=== PATIENT | female | born 1980 | race Caucasian/White ===

== ENCOUNTER 2017-01-14 15:55 | Emergency (ER) | payer BC ==
[2017-01-14] MEDS ORDERED: Phenazopyridine TAB* 100 MG PO ONE (16:40)
[2017-01-14 16:49] VITALS: BP 128/83
--- NOTE | 2017-01-14 16:49 | UC ---
Complaint Female HPI - HPI Summary HPI Summary: Bladder discomfort, frequency, and dysuria starting 5 days ago. Tried drinking lots of fluids but getting worse. Feels like UTI she had in her teens. None since then. Denies vaginal symptoms. Also starting coughing 3 days ago and has become hoarse -- not worried about it , is not intending to be seen for this, but wanted to be upfront about symptoms. - History Of Current Complaint Stated Complaint: URINARY Time Seen by Provider: 01/14/17 16:29 Hx Obtained From: Patient Hx Last Menstrual Period: 10/02/16 ?: No Onset/Duration: Gradual Onset, Lasting Days Timing: Constant Character: Cramping Aggravating Factor(s): Urination Alleviating Factor(s): Position Related Hx: Similar Episode/Dx as: - UTI - Allergies/Home Medications Allergies/Adverse Reactions: Allergies Allergy/AdvReac Type Severity Reaction Status Date / Time No Known Allergies Allergy Verified 10/06/16 20:00 PMH/Surg Hx/FS Hx/Imm Hx Previously Healthy: Yes - Surgical History Surgical History: Yes Surgery Procedure, Year, and Place: DOUBLE MASTECTOMY WITH RECONSTRUCTION. WISDOM TEETH EXTRACTION - Family History Known Family History: Positive: Diabetes - grandfather-maternal Negative: Cardiac Disease, Hypertension, Respiratory Disease - Social History Alcohol Use: None Substance Use Type: None Smoking Status (MU): Never Smoked Tobacco Review of Systems Constitutional: Negative Skin: Negative Eyes: Negative ENT: Negative Respiratory: Negative Cardiovascular: Negative Gastrointestinal: Negative Genitourinary: Dysuria, Hematuria, Frequency Motor: Negative Neurovascular: Negative Musculoskeletal: Negative Neurological: Negative Psychological: Negative All Other Systems Reviewed And Are Negative: Yes Physical Exam Triage Information Reviewed: Yes Appearance: Well-Appearing, Well-Nourished, Pain Distress - mild, from bladder Vital Signs Reviewed: Yes Eye Exam: Normal Eyes: Positive: Conjunctiva Clear ENT Exam: Normal ENT: Positive: Normal ENT inspection, Hearing grossly normal, Pharynx normal, TMs normal Neck exam: Normal Respiratory Exam: Normal Respiratory: Positive: Chest non-tender, Lungs clear, Normal breath sounds, No respiratory distress, No accessory muscle use Cardiovascular Exam: Normal Cardiovascular: Positive: RRR, No Murmur Abdomen Description: Negative: CVA Tenderness (R), CVA Tenderness (L) Musculoskeletal Exam: Normal Neurological Exam: Normal Psychological Exam: Normal Skin Exam: Normal Complaint Female Dx - Differential Dx/Diagnosis Provider Diagnoses: UTI Discharge - Discharge Plan Condition: Stable Disposition: HOME Prescriptions: Nitrofurantoin Monohyd Macro [Macrobid] 100 mg PO BID #10 cap Patient Education Materials: Urinary Tract Infection in Women (ED) Referrals: No Primary Care Phys,NOPCP [Primary Care Provider] -
== END 2017-01-14 17:18 | disposition home or self-care (01) ==
LOC: UCCORT 15:55
DX: N39.0 Urinary tract infection, site not specified (principal); R31.9 Hematuria, unspecified; Z87.440 Personal history of urinary (tract) infections
CPT/HCPCS: 87086; 99212; A9270-GY; G0463

== ENCOUNTER 2017-01-16 10:04 | Emergency (ER) | payer BC ==
[2017-01-16] MEDS ORDERED: Ondansetron ODT TAB* 4 MG PO ONE (10:57)
[2017-01-16] MEDS ORDERED: Ondansetron ODT TAB* 4 MG ONE (10:58)
[2017-01-16] MEDS ORDERED: Ketorolac INJ* 60 MG/2 ML VIAL IM ONE (10:58)
[2017-01-16 11:25] VITALS: BP 147/80
--- NOTE | 2017-01-16 11:36 | RAD ---
INDICATION: Left lower quadrant abdominal pain. COMPARISON: There are no prior studies available for comparison TECHNIQUE: A CT scan of the abdomen and pelvis was performed without intravenous or oral contrast. Contiguous axial sections were obtained from the lung bases through the symphysis pubis. Images were reconstructed in the coronal and sagittal planes. FINDINGS: The lung bases are clear. No pleural effusion is present. The liver is normal in size without significant focal abnormality on this noncontrast study. The spleen is mildly enlarged. No calcified gallstones are seen. The pancreas appears to be within normal limits. The adrenal glands and kidneys are normal in size. No renal calculi are seen. There is a prominent left renal pelvis most consistent with normal variation. No ureteral or bladder calculi are seen. The aorta is normal in caliber without significant calcific plaque. No significant enlarged retroperitoneal lymph nodes are seen. The stomach is mildly distended and filled with fluid and food debris. Small bowel and colon are nondistended. The appendix is within normal limits. There is no evidence for diverticulitis or colitis. Postsurgical changes are noted within the anterior abdominal wall. There are multiple surgical clips present. No hernia is seen. The uterus is anteverted and upper limits of normal in size. No free intraperitoneal air or fluid is seen. No significant focal osseous abnormality is seen. IMPRESSION: 1. POSTSURGICAL CHANGES, NO EVIDENCE FOR ACUTE FINDING OR CAUSE FOR THE PATIENT'S ABDOMINAL PAIN IS SEEN. 2. MILD SPLENOMEGALY.
--- NOTE | 2017-01-16 11:52 | UC ---
Abdominal Pain Female HPI - HPI Summary HPI Summary: 36 female presents with complaints of un-improving bladder spasms and sudden onset sharp/stabbing LLQ pain that began upon waking up this morning 01/16/17, and brought her into the position. Patient was seen here 01/14 and treated for a UTI. Culture came back negative and she was called and stated she still wasn't feeling any better. The abdominal pain was also new. She was advised to come back and presents in office with nausea, abdominal pain and feeling like she was going to pass out from the pain. She took an ibuprofen yesterday and this morning without any relief. Denies radiation of pain. Denies vomiting, diarrhea, urinary symptoms, blood in stool, constipation and history of acid reflux. Denies difficulty breathing, chest pain and fever/chills. She was kept up from sleeping last night due to bladder spasms that began ~ 1 week ago. She is unable to urinate at times although it feels as though she has to. Denies urinary incontinence. Denies vaginal discharge and symptoms. Same sexual partner , denies as had vasectomy. States she feels bloated. Has had no trouble eating or drinking. - History of Current Complaint Chief Complaint: UCAbdominalPain Stated Complaint: URINARY Time Seen by Provider: 01/16/17 10:56 Hx Obtained From: Patient Hx Last Menstrual Period: 12/24/16 ?: No Onset/Duration: Sudden Onset, Lasting Days, Worse Since Timing: Constant Severity Currently: None Pain Intensity: 10 Pain Scale Used: 0-10 Numeric Location: Discrete At: LLQ Radiates: No Character: Sharp - stabbing Aggravating Factor(s): Nothing Alleviating Factor(s): Nothing Associated Signs and Symptoms: Positive: Urinary Symptoms - bladder spasms and unable to urinate at times Allergies/Adverse Reactions: Allergies Allergy/AdvReac Type Severity Reaction Status Date / Time No Known Allergies Allergy Verified 01/16/17 10:43 PMH/Surg Hx/FS Hx/Imm Hx Endocrine History Of: Denies: Diabetes Cardiovascular History Of: Denies: Hypertension Psychological History Of: Denies: Anxiety - Surgical History Surgical History: Yes Surgery Procedure, Year, and Place: DOUBLE MASTECTOMY WITH RECONSTRUCTION. WISDOM TEETH EXTRACTION - Family History Known Family History: Positive: Diabetes - grandfather-maternal Negative: Cardiac Disease, Hypertension, Respiratory Disease - Social History Alcohol Use: None Substance Use Type: None Smoking Status (MU): Never Smoked Tobacco - Immunization History Most Recent Influenza Vaccination: none Review of Systems Constitutional: Negative Skin: Negative ENT: Negative Respiratory: Negative Cardiovascular: Negative Gastrointestinal: Abdominal Pain, Other - nausea Genitourinary: Urgency - however unable to urinate, Other - bladder spasms Motor: Negative Neurovascular: Negative Musculoskeletal: Negative Neurological: Negative Psychological: Negative All Other Systems Reviewed And Are Negative: Yes Physical Exam Triage Information Reviewed: Yes Appearance: No Pain Distress, Well-Nourished, Ill-Appearing - however appeared much better after toradol and zofran Vital Signs: Initial Vital Signs Temp 96.0 F 01/16/17 10:39 Pulse 66 01/16/17 10:39 Resp 14 01/16/17 10:39 BP 133/77 01/16/17 10:39 Pulse Ox 100 01/16/17 10:39 Vital Signs Reviewed: Yes Eyes: Positive: Conjunctiva Clear ENT: Positive: Hearing grossly normal, Pharynx normal, TMs normal Dental: Negative: Cervical Lymphadenopathy Neck: Positive: Supple, Nontender Respiratory: Positive: Chest non-tender, Lungs clear, Normal breath sounds, No respiratory distress Cardiovascular: Positive: RRR, No Murmur, Pulses Normal Abdomen Description: Positive: No Organomegaly, Soft, CVA Tenderness (R) - very mild, Other: - mild tenderness on palpation of upper-mid portion of LLQ. non- tender throughout rest of abdomen, negative rovsing, psoas and rebound. no back pain. Negative: Bruit, CVA Tenderness (L), Distended, Guarding, Hepatomegaly, McBurney's Point Tenderness, Splenomegaly Bowel Sounds: Positive: Present Musculoskeletal: Positive: Strength Intact, ROM Intact Neurological: Positive: Alert, Muscle Tone Normal Psychological Exam: Normal Skin Exam: Normal UC Physical Exam Vital Signs On Initial Exam: Initial Vitals Temp Pulse Resp BP Pulse Ox 96.0 F 66 14 133/77 100 01/16/17 10:39 01/16/17 10:39 01/16/17 10:39 01/16/17 10:39 01/16/17 10:39 - Genitalia Exam Female Genitourinary: Normal External Exam, Normal Vaginal Exam, Vagina without Blood/Discharge, Genitalia without Lesions/Masses, Cervix Closed, Other - no adenexal tenderness Diagnostics - Radiology CT of abdomen/pelvis Xray Interpretation: No Acute Changes - 1. POSTSURGICAL CHANGES, NO EVIDENCE FOR ACUTE FINDING OR CAUSE FOR THE PATIENT'S ABDOMINAL PAIN IS SEEN. 2. MILD SPLENOMEGALY. Radiology Interpretation Completed By: Radiologist Re-Evaluation - Re-Evaluation First Eval Re-Evaluation Time: 11:20 Change: Improved - patient felt much better after toradol and zofran Abd Pain Female Course/Dx - Course Course Of Treatment: Urinalysis UA preg, and Ct scan obtained. All negative. Pelvic exam was normal and unremarkable. Cultures were obtained, STD and Affirm. Patient's urine culture was negative advised to stop macrobid. will be prescribed pyridium to help with bladder pain and spasm. discussed with Dr Estrada. Before discharge patient stated her pain was still better but she could still feel it, dull achey. Routine blood work was ordered to rule out any other etiologies. Will be referred to urologist for possible urinary incontinence/retention and to discuss bladder spasms. aware of worsening symptoms and to go to ER or if new symptoms develop. advised it may be a good idea to go to ER after she leaves here for more of a work-up - Differential Dx/Diagnosis Differential Diagnosis: Appendicitis, Constipation, Diverticulitis, Gall Bladder Disease, Irritable Bowel Syndrome, Ovarian Cyst, Pelvic Inflammatory Disease, , Renal Colic, Urinary Tract Infection, Other - nephrolithiasis Provider Diagnoses: LLQ abdominal pain, bladder spasms Discharge - Discharge Plan Condition: Stable Disposition: HOME Prescriptions: Phenazopyridine TAB* [Pyridium TAB*] 100 mg PO TID #10 tab Patient Education Materials: [employer] Exercises for Women (GEN), Acute Urinary Retention in Women (ED), Acute Abdominal Pain (ED) Referrals: Loretta Lee MD [Primary Care Provider] - Jorge Bella MD,Po Rowe [Medical Doctor] - Additional Instructions: Take prescribed medication as needed for pain for the next couple of days. You may also continue Ibuprofen or Aleve for pain and discomfort. You may discontinue the Macrobid at this time. Drink plenty of fluids. If pain worsens or new symptoms develop please seek medical attention promptly and go to the ER. Follow-up with primary care and make an appointment with urology for further evaluation.
[2017-01-16 19:28] LABS: Hematocrit 39 % (35-47); Hemoglobin 13.3 g/dl (12.0-16.0); Mean Corpuscular HGB Conc 34 g/dl (31-36); Mean Corpuscular Hemoglobin 30 pg (27-31); Mean Corpuscular Volume 89 fL (80-97); Mean Platelet Volume 9 um3 (7.4-10.4); Red Blood Count 4.39 10^6/ul (4.0-5.4); Red Cell Distribution Width 13 % (10.5-15); White Blood Count 15.7 10^3/ul (3.5-10.8)
[2017-01-16 19:39] LABS: Albumin 4.3 g/dL (3.2-5.2); BUN/Creatinine Ratio 13.8 (8-20); Calcium 9.2 mg/dL (8.6-10.3); EGFR African American 103.8 (>60); EGFR Non-African American 80.7 (>60); Potassium 3.9 mmol/L (3.5-5.0); Total Bilirubin 0.4 mg/dL (0.2-1.0); Total Protein 7.3 g/dL (6.4-8.9)
== END 2017-01-16 12:56 | disposition home or self-care (01) ==
LOC: UCCORT 10:04
DX: R10.32 Left lower quadrant pain (principal); N32.89 Other specified disorders of bladder; R16.1 Splenomegaly, not elsewhere classified; Z32.02 Encounter for pregnancy test, result negative
CPT/HCPCS: 36415; 74176; 80053; 81025; 83690; 85025; 87086; 87480; 87491; 87510; 87591; 87661; 96372; 99213; A9270-GY; G0463; J1885

== ENCOUNTER 2019-03-27 16:01 | Emergency (ER) | payer BC ==
[2019-03-27 16:22] VITALS: BP 142/88
--- NOTE | 2019-03-27 17:06 | UC ---
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 pain 03/27, but reports that she has a high pain tolerance. -no fever. glands feel swollen. no congestion. no cough. -reports normally neg rapid strep and positive TCs. -no rash -she asks if this could be tonsil cancer. she was dx'd w/ breast ca at young age. - History of Current Complaint Chief Complaint: UCGeneralIllness Stated Complaint: ST Time Seen by Provider: 03/27/19 17:00 Hx Last Menstrual Period: [id number] Pain Intensity: 5 - Allergies/Home Medications Allergies/Adverse Reactions: Allergies Allergy/AdvReac Type Severity Reaction Status Date / Time No Known Allergies Allergy Verified 03/27/19 16:22 Home Medications: Home Medications Ibuprofen TAB* [Motrin TAB* 600 MG] 600 mg PO Q6H PRN 03/27/19 [History Confirmed 03/27/19] PMH/Surg Hx/FS Hx/Imm Hx Previously Healthy: Yes - Surgical History Surgical History: Yes Surgery Procedure, Year, and Place: DOUBLE MASTECTOMY WITH RECONSTRUCTION. WISDOM TEETH EXTRACTION - Family History Known Family History: Positive: Diabetes - grandfather-maternal Negative: Cardiac Disease, Hypertension, Respiratory Disease - Social History Alcohol Use: None Substance Use Type: None Smoking Status (MU): Never Smoked Tobacco - Immunization History Most Recent Influenza Vaccination: none Review of Systems All Other Systems Reviewed And Are Negative: Yes Constitutional: Positive: Negative Skin: Positive: Negative Eyes: Positive: Negative ENT: Positive: Sore Throat - left tonsil w/ white spot.. Negative: Nasal Discharge, Sinus Pain/Tenderness Respiratory: Positive: Negative. Negative: Cough Cardiovascular: Positive: Negative Gastrointestinal: Positive: Negative. Negative: Vomiting, Diarrhea, Nausea Genitourinary: Positive: Negative Motor: Positive: Negative Neurovascular: Positive: Negative Musculoskeletal: Positive: Negative Neurological: Positive: Negative Psychological: Positive: Negative Is Patient Immunocompromised?: No Physical Exam Triage Information Reviewed: Yes Appearance: Well-Appearing, No Pain Distress, Well-Nourished Vital Signs: Initial Vital Signs Temp 98.0 F 03/27/19 16:16 Pulse 93 03/27/19 16:16 Resp 18 03/27/19 16:16 BP 142/88 03/27/19 16:16 Pulse Ox 100 03/27/19 16:16 Vital Signs Reviewed: Yes Eye Exam: Normal ENT: Positive: Pharyngeal erythema - mild, b/l slightly enlarged tonsils. left tonsil w/ 1 small spot of white area, may be c/w tosnilar stone. no abscess. uvula midline., TMs normal, Uvula midline. Negative: Nasal congestion, Hoarse voice Dental Exam: Normal Neck exam: Normal Neck: Positive: Supple, Nontender, No Lymphadenopathy. Negative: Nuchal Rigidity Respiratory Exam: Normal Respiratory: Positive: Chest non-tender, Lungs clear, Normal breath sounds, No respiratory distress, No accessory muscle use. Negative: Crackles, Rhonchi, Stridor Cardiovascular Exam: Normal Cardiovascular: Positive: RRR, No Murmur Musculoskeletal Exam: Normal Neurological Exam: Normal Psychological Exam: Normal Skin Exam: Normal Throat Pain/Nasal Course/Dx - Course Course Of Treatment: rapid strep is neg -throat cx sent per her request. abx will be sent in if throat cx is positive. disc risks of abx. -afebrile, no LAD on exam. -counseled and reassured that this is unlikely to be tonsil cancer, low suspicion. educated on tonsil stones and viral pharyngitis in differential. -recommend that she see's an ENT if sx do not improve. -I verbalized that she should f/u with her PCP this week, although I did not shilpa it in her dc ppwk. -I answered her many questions and reassured her to the best of my ability -suspect viral pharyngitis -APAP, nsaids - Differential Dx/Diagnosis Differential Diagnosis/HQI/PQRI: Laryngitis, Peritonsillar Abscess, Pharyngitis , Tonsillitis, URI Provider Diagnosis: Pharyngitis Discharge - Sign-Out/Discharge Documenting (check all that apply): Patient Departure All imaging exams completed and their final reports reviewed: No Studies - Discharge Plan Condition: Stable Disposition: HOME Patient Education Materials: Pharyngitis (ED) Referrals: Loretta Lee MD [Primary Care Provider] - Additional Instructions: -Rapid strep is negative. We have sent a traditional throat culture at your request. If it comes back positive for strep, we will treat with an antibiotic. If is negative, it is considered to be viral. -NSAIDs and tylenol can be helpful for pain. -Please follow up with an ENT if your symptoms persist. - Billing Disposition and Condition Condition: STABLE Disposition: Home
== END 2019-03-27 17:21 | disposition home or self-care (01) ==
LOC: UCCORT 16:01
DX: J02.9 Acute pharyngitis, unspecified (principal)
CPT/HCPCS: 87070; 87651; 99211; G0463